=== PATIENT | female | born 1960 | race Caucasian/White ===

== ENCOUNTER 2016-06-19 08:06 | Emergency (ER) | payer BC, OTHER ==
[2016-06-19] MEDS ORDERED: Ketorolac INJ* 60 MG/2 ML VIAL IM ONE (08:38)
--- NOTE | 2016-06-19 08:52 | UC ---
Wil Parks Matthew, scribed for Uriah Black MD on 06/19/16 at 0836 . Dental HPI - HPI Summary HPI Summary: A 55 y/o female presents to the ED with right upper dental pain. The patient saw her dentist on 06/16 and was told she needed a root canal for a dental infection. She has a follow-up appointment scheduled with a specialist in approximately 2 weeks. At that time, the patient was also prescribed penicillin and diflunisal. Initially, her symptoms were improving; however since last night the pain has worsened moving into the right check. She is unable to eat from the pain and has associated upper right sided facial swelling. - History of Current Complaint Chief Complaint: UCDentalProblem Stated Complaint: DENTAL PAIN Time Seen by Provider: 06/19/16 08:19 Hx Obtained From: Patient ?: No Onset/Duration: Lasting Days, Still Present Severity: Moderate Pain Intensity: 9 Pain Scale Used: 0-10 Numeric Aggravating: Chewing - Allergies/Home Medications Allergies/Adverse Reactions: Allergies Allergy/AdvReac Type Severity Reaction Status Date / Time No Known Allergies Allergy Verified 01/15/16 10:15 Home Medications: Home Medications Diflunisal TAB* [Dolobid TAB*] 2 tab PO Q8HR PRN 06/19/16 [History Confirmed ] PMH/Surg Hx/FS Hx/Imm Hx Endocrine History Of: Reports: Thyroid Disease - HASHIMOTOS, Hypothyroidism Denies: Diabetes Cardiovascular History Of: Reports: Cardiac Disorders - blood clots in lungs, Congestive Heart Failure - CHRONIC DIASTOLIC HEART FAILURE Denies: Hypertension, Pacemaker/ICD Respiratory History Of: Reports: Pulmonary Embolism - POSSIBLE 2006 AND 2007, UNSURE AFTER TESTING Denies: COPD, Asthma GI/ History Of: Denies: Ulcer Psychological History Of: Reports: Depression - ON MEDS Cancer History Of: Denies: Breast Cancer - Surgical History Surgical History: Yes Surgery Procedure, Year, and Place: HYSTOSCOPY, MOLE REMOVED -MELONOMA, BLADDER SLING, CARDIAC CATH W/O STENTS. BACK SURGERY spinal fusion - Family History Known Family History: Positive: Diabetes Family History: No FHx of breast CA - Social History Alcohol Use: None Substance Use Type: None Smoking Status (MU): Former Smoker Type: Cigarettes Have You Smoked in the Last Year: No When Did the Patient Quit Smoking/Using Tobacco: 1997 Review of Systems Constitutional: Negative Skin: Negative Eyes: Negative ENT: Dental Pain, Other - right sided facial swelling Respiratory: Negative Cardiovascular: Negative Gastrointestinal: Negative Genitourinary: Negative Motor: Negative Neurovascular: Negative Musculoskeletal: Negative Neurological: Negative Psychological: Negative All Other Systems Reviewed And Are Negative: Yes Physical Exam Triage Information Reviewed: Yes Vital Signs: Initial Vital Signs Temp 97.4 F 06/19/16 08:13 Pulse 83 06/19/16 08:13 Resp 18 06/19/16 08:13 BP 137/84 06/19/16 08:13 Pulse Ox 99 06/19/16 08:13 Vital Signs Reviewed: Yes - Additional Comments VITAL SIGNS: Reviewed. GENERAL: Patient is a well developed and nourished female who is lying comfortable in the stretcher. Patient is not in any acute respiratory distress. HEAD AND FACE: Normocephalic; Positive upper right sided facial swelling EYES: PERRLA, EOMI x 2. EARS: Hearing grossly intact. MOUTH: Oropharynx within normal limits. The patient also has multiple cavities and fillings in teeth 2,3,4 NECK: Supple, trachea is midline, no adenopathy, no JVD, no carotid bruit. CHEST: Symmetric, no tenderness at palpation LUNGS: Clear to auscultation bilaterally. No wheezing or crackles. CVS: Regular rate and rhythm, S1 and S2 present, no murmurs or gallops appreciated. ABDOMEN: Soft, non-tender. Bowel sounds are normal. No abdominal abnormal pulsations. EXTREMITIES: FROM in all major joints, no edema, no cyanosis or clubbing. NEURO: Alert and oriented x 3. No acute neurological deficits. Speech is normal and follows commands. SKIN: Dry and warm Dental Complaint Course/Dx - Course Course Of Treatment: A 55 y/o female presents to the ED with right upper dental pain. The patient saw her dentist on 06/16 and was told she needed a root canal for a dental infection. She has a follow-up appointment scheduled with a specialist in approximately 2 weeks. At that time, the patient was also prescribed penicillin and diflunisal. Initially, her symptoms were improving; however since last night the pain has worsened moving into the right check. She is unable to eat from the pain and has associated upper right sided facial swelling. P/E: reveals a right facial swelling possible secondary to an early formation of a dental Abscess. She is scheduled to have a root canal in 2 weeks. She is taking penicillin however her symptoms are getting worse. I gave patient Toradol for pain. I also will change penicillin to Augmentin. I will prescribe a short course of Percocet for the pain. She is to take Diflunisal as indicated. She will stop taking Penicillin. She was highly recommended to follow up with her dentist today or tomorrow for further assessment and treatment. At this time she has no trismus, drooling, difficulty swallowing, therefore she will safe to discharge with an urgent f/u of her dentist. I discussed all the findings and test results with the patient. Patient was instructed to return to the emergency room immediately if any of the symptoms return or worsens. Plan of care was discussed with the patient and understands and agrees. All questions were answered at patient satisfaction. There were no further complaints or concerns. Lung exam before discharge: CTA B/L. Good air exchange. No wheezing or crackles heard. CVS: S1 and S2 present. No murmurs appreciated. Patient is alert and oriented x 3. Patient is hemodynamically stable. Patient will be discharged home with follow up college administrator in the next 2-3 days - Differential Dx/Diagnosis Differential Diagnosis/Dx: Dental Abscess, Dental Caries, Fractured Tooth, Gingivitis, Odontogenic Pain Provider Diagnoses: Dental pain and abscess Discharge - Discharge Plan Condition: Stable Disposition: HOME Prescriptions: Amoxicillin/Clavulanate TAB* [Augmentin TAB 875*] 875 mg PO BID #20 tab oxyCODONE/Acetamin 5/325 MG* [Percocet 5/325 TAB*] 1 tab PO Q6H PRN #12 tab MDD max 4 tabs / day PRN Reason: Pain Patient Education Materials: Oxycodone/Acetaminophen (By mouth), Amoxicillin ( By mouth), Dental Abscess (ED), Toothache (ED) Referrals: Jean Marie De La Fuente MD [Primary Care Provider] - Additional Instructions: Please follow-up with your dentist as soon as possible. The documentation as recorded by the Wil lockwood Matthew accurately reflects the service I personally performed and the decisions made by , Uriah Black MD.
[2016-06-19 09:11] VITALS: BP 127/88
== END 2016-06-19 09:10 | disposition home or self-care (01) ==
LOC: UCEAST 08:06
DX: K04.7 Periapical abscess without sinus (principal); K08.89 Other specified disorders of teeth and supporting structures; Z86.711 Personal history of pulmonary embolism; I50.32 Chronic diastolic (congestive) heart failure; F32.9 Major depressive disorder, single episode, unspecified; Z87.891 Personal history of nicotine dependence
CPT/HCPCS: 96372; 99212; G0463; J1885

== ENCOUNTER 2016-09-02 09:20 | Inpatient (IN) | payer BC ==
[2016-09-02] MEDS ORDERED: NS 0.9% 1000 ML* 1,000 ML IV ONE (10:52)
[2016-09-02] MEDS ORDERED: Ketorolac INJ* 30 MG/ML 1 ML VIAL IV ONE (10:52)
[2016-09-02] MEDS ORDERED: Ondansetron INJ* 2 MG/ML VIAL IV ONE ×2 (10:52→14:40)
--- NOTE | 2016-09-02 11:35 | ED ---
Abdominal Pain/Female - HPI Summary HPI Summary: 55 female presents with complaints of left lower abdominal pain that radiates into left flank. Began on Thursday08/30/16 and has worsened over the past few days. Patient had one episode of diarrhea on Thursday when symptoms began however she took immodium and has not had any since. She had a normal bowel movement today while in ED. She denies blood in stool and vomiting. Admits to some nausea due to the pain. States pain comes and goes and brings her to her knees when it is at its worst. 10/10 that goes down to a 5/10 inbetween episodes. States the pain is sharp and sometimes a dull ache. Denies fever/ chills. She denies any history of GI issues. Was told at colonoscopy that she does have some diverticulosis ~7 years ago. no other significant PMHx. Denies kidney stones, urinary symptoms and genitalia symptoms. Has not taken any medication for the pain. No recent antibiotic use and has not been out of the country. - History of Current Complaint Chief Complaint: EDFlankPain Stated Complaint: LT FLANK PAIN Time Seen by Provider: 09/02/16 09:56 Hx Obtained From: Patient ?: No Onset/Duration: Sudden Onset, Lasting Days - 4 Timing: Intermittent Episode Lasting - minutes Severity Initially: Moderate Severity Currently: Moderate Pain Intensity: 6 Pain Scale Used: 0-10 Numeric - however goes up to a 10/10 intermittently Location: Discrete At: LUQ, Discrete At: LLQ Radiates: Yes Radiates to: Flank - left, Other - umbilical Character: Sharp, Dull Aggravating Factor(s): Nothing Alleviating Factor(s): Nothing Associated Signs and Symptoms: Positive: Back Pain, Decreased Appetite, Nausea, Diarrhea. Negative: Diaphoresis, Fever, Blood in Stool Allergies/Adverse Reactions: Allergies Allergy/AdvReac Type Severity Reaction Status Date / Time No Known Allergies Allergy Verified 09/02/16 10:09 PMH/Surg Hx/FS Hx/Imm Hx Endocrine/Hematology History: Reports: Hx Thyroid Disease - HASHIMOTOS, Hx Anemia - INTERMITTANT- [place] FOR MANY YEARS Denies: Hx Diabetes Cardiovascular History: Reports: Hx Congestive Heart Failure - CHRONIC DIASTOLIC HEART FAILURE, Other Cardiovascular Problems/Disorders - CARDIOMYOPATHY Denies: Hx Hypertension, Hx Pacemaker/ICD Respiratory History: Reports: Hx Pulmonary Embolism - POSSIBLE 2006 AND 2007, UNSURE AFTER TESTING Denies: Hx Asthma, Hx Chronic Obstructive Pulmonary Disease (COPD) GI History: Reports: Hx Gastroesophageal Reflux Disease, Hx Hiatal Hernia Denies: Hx Ulcer Musculoskeletal History: Reports: Hx Back Problems - lumbar radiculopathy/ spinal stenosis Sensory History: Reports: Hx Contacts or Glasses Denies: Hx Hearing Aid Opthamlomology History: Reports: Hx Contacts or Glasses Neurological History: Reports: Other Neuro Impairments/Disorders - PAIN CLINIC PATIENT Psychiatric History: Reports: Hx Depression - ON MEDS Denies: Hx Panic Disorder - Cancer History Cancer Type, Location and Year: Melanoma leg Hx Chemotherapy: No Hx Radiation Therapy: No - Surgical History Surgery Procedure, Year, and Place: HYSTOSCOPY, MOLE REMOVED -MELONOMA, BLADDER SLING, CARDIAC CATH W/O STENTS. BACK SURGERY spinal fusion Hx Anesthesia Reactions: No - Immunization History Immunizations Up to Date: Yes Infectious Disease History: Yes Infectious Disease History: Denies: Hx Clostridium Difficile, Hx Hepatitis, Hx Human Immunodeficiency Virus (HIV), Hx of Known/Suspected MRSA, Hx Shingles, Hx Tuberculosis, Hx Known/ Suspected VRE, Hx Known/Suspected VRSA, History Other Infectious Disease, Traveled Outside the [place] in Last 30 Days - Family History Known Family History: Positive: Diabetes Family History: No FHx of breast CA - Social History Alcohol Use: Rare Substance Use Type: Reports: None Smoking Status (MU): Former Smoker Type: Cigarettes Have You Smoked in the Last Year: No Review of Systems Constitutional: Negative Cardiovascular: Negative Respiratory: Negative Positive: Abdominal Pain, Diarrhea, Nausea Genitourinary: Negative Musculoskeletal: Negative Neurological: Negative All Other Systems Reviewed And Are Negative: Yes Physical Exam Triage Information Reviewed: Yes Vital Signs On Initial Exam: Initial Vitals Temp Pulse Resp BP Pulse Ox 97.2 F 84 16 126/96 100 09/02/16 09:25 09/02/16 09:25 09/02/16 09:25 09/02/16 09:25 09/02/16 09:25 afebrile Vital Signs Reviewed: Yes Appearance: Positive: Well-Appearing, Well-Nourished, Pain Distress - mild pain distress holding side and wincing Skin: Positive: Warm, Skin Color Reflects Adequate Perfusion, Dry Head/Face: Positive: Normal Head/Face Inspection Eyes: Positive: Normal, Conjunctiva Clear ENT: Positive: Normal ENT inspection, Hearing grossly normal, TMs normal Neck: Positive: Supple, Nontender, No Lymphadenopathy Respiratory/Lung Sounds: Positive: Clear to Auscultation, Breath Sounds Present. Negative: Rales, Rhonchi, Stridor, Wheezes Cardiovascular: Positive: Normal, RRR, Pulses are Symmetrical in both Upper and Lower Extremities. Negative: Murmur, Rub Abdomen Description: Positive: No Organomegaly, Soft, CVA Tenderness (L), Guarding, Other: - tenderness on palpation of left side abdomen and some in mid abdomen. mostly painful at LLQ with palpation.. Negative: Bruit, CVA Tenderness (R), Distended, McBurney's Point Tenderness, Peritoneal Signs, Pulsatile Mass Bowel Sounds: Positive: Present, Hypoactive Pelvic Exam: Positive: external exam normal - per patient Musculoskeletal: Positive: Normal, Strength/ROM Intact Neurological: Positive: Normal, Sensory/Motor Intact, Alert, Oriented to Person Place, Time Psychiatric: Positive: Affect/Mood Appropriate AVPU Assessment: Alert - Forbes Coma Scale Coma Scale Total: 15 Diagnostics - Vital Signs Vital Signs Temp Pulse Resp BP Pulse Ox 09/02/16 10:15 98.0 F 70 16 120/80 99 09/02/16 10:08 120/80 09/02/16 09:25 97.2 F 84 16 126/96 100 - Laboratory Result Diagrams: 09/02/16 11:29 09/02/16 11:29 Lab Statement: Any lab studies that have been ordered have been reviewed, and results considered in the medical decision making process. - CT abd/pelvis CT Interpretation: Positive (See Comments) - DIFFUSE WALL THICKENING OF THE DESCENDING COLON AND SIGMOID COLON WITH PERICOLONIC INFILTRATION OF FAT ESPECIALLY AT THE JUNCTION BETWEEN THE DESCENDING COLON AND SIGMOID COLON. THIS MAY REPRESENT DIVERTICULITIS OR COLITIS. NO EVIDENCE OF ABSCESS IS NOTED. CT Interpretation Completed By: Radiologist Re-Evaluation - Re-Evaluation First Eval Re-Evaluation Time: 11:35 Change: Improved - patients pain had improved after toradol Second Eval Re-Evaluation Time: 13:05 Change: Worse - patient's pain had returned, will be given morphine Third Eval Re-Evaluation Time: 14:00 Change: Improved - pain had slightly improved however was not as helpful as toradol, patient not due for another toradol dose at this time. discussed admission after speaking with GI. patient is in agreement. given 2mg more of morphine Abdominal Pain Fem Course/Dx - Course Course Of Treatment: given toradol for pain and zofran for nausea. fluids. Labs obtained and unremarkable. CT with contrast ordered and positive for colitis/ diverticulitis. Due to no sign of infection in lab work and vitals, possible inflammatory colitis. discussed with Dr Hernandez at 3:15pm who states patient should be admitted for sigmoidoscopy tomorrow 09/03/16. Spoke with Dr Triana at 3:23pm who accepted admission. Patient was educated on possible etiologies, clear liquid diet and agreed with plan. - Diagnoses Differential Diagnosis: Positive: Diverticulitis, Irritable Bowel Syndrome, Peptic Ulcer Disease, Other - UC, Crohn's Provider Diagnoses: Colitis - Provider Notifications Discussed Care Of Patient With: Dr Kong Cline Time Discussed With Above Provider: 15:20 Instructed by Provider To: Admit As Inpatient Discharge - Discharge Plan Condition: Stable Disposition: ADMITTED TO [facility]
[2016-09-02 11:47] LABS: Hematocrit 42 % (35-47); Hemoglobin 14.1 g/dl (12.0-16.0); Mean Corpuscular HGB Conc 34 g/dl (31-36); Mean Corpuscular Hemoglobin 30 pg (27-31); Mean Corpuscular Volume 89 fL (80-97); Mean Platelet Volume 9 um3 (7.4-10.4); Red Blood Count 4.71 10^6/ul (4.0-5.4); Red Cell Distribution Width 13 % (10.5-15); White Blood Count 6.3 10^3/ul (3.5-10.8)
[2016-09-02 12:00] LABS: ALT 25 U/L (7-52); AST 17 U/L (13-39); Albumin 4.4 g/dL (3.2-5.2); Alkaline Phosphatase 85 U/L (34-104); Anion Gap 2 mmol/L (2-11); BUN/Creatinine Ratio 14.1 (8-20); Blood Urea Nitrogen 11 mg/dL (6-24); C Reactive Protein 9.83 mg/L (< 5.00); CO2 Carbon Dioxide 24 mmol/L (22-32); Calcium 9.5 mg/dL (8.6-10.3); Chloride 109 mmol/L (101-111); EGFR African American 98.3 (>60); EGFR Non-African American 76.4 (>60); Globulin 2.3 g/dL (2-4); Glucose 104 mg/dL (70-100); Lipase < 10 U/L (11.0-82.0); Potassium 3.3 mmol/L (3.5-5.0); Sodium 135 mmol/L (133-145); Total Protein 6.7 g/dL (6.4-8.9)
[2016-09-02] MEDS ORDERED: Iohexol 300* (CONTRAST) 10 ML SDV IV ONE (12:50)
--- NOTE | 2016-09-02 13:21 | RAD ---
Indication: Left lower quadrant pain. Contrast: 139 mL of Omnipaque 300 was given according to hospital protocol. CT of the abdomen and pelvis was performed after oral and IV contrast administration. Coronal and sagittal reconstructed images were obtained. The lung bases demonstrates left basilar atelectasis. No pleural fluid is identified. The heart demonstrates no pericardial effusion. The liver is normal in size. No focal lesions or intrahepatic duct dilatation is noted. Gallbladder demonstrates no calcified gallstones. No pericholecystic fluid or wall thickening is identified. The common duct is not dilated. The pancreas demonstrates no mass or pancreatic duct dilatation. The spleen is normal in size. No adrenal lesions are noted. The kidneys demonstrate symmetric nephrograms without evidence of focal lesions. The colon is filled with contrast. There is circumferential wall thickening of the descending colon. There is focal wall thickening with pericolonic infiltration of fat at the junction between the sigmoid colon and descending colon. Underlying diverticulosis is noted and this may represent diverticulitis. No definite abscess is noted. Alternatively the possibility of colitis involving the descending colon and sigmoid colon should BE considered. Trace amount of free fluid is noted in the pelvis. The urinary bladder is otherwise unremarkable. Postoperative changes of the lumbar spine is noted. IMPRESSION: DIFFUSE WALL THICKENING OF THE DESCENDING COLON AND SIGMOID COLON WITH PERICOLONIC INFILTRATION OF FAT ESPECIALLY AT THE JUNCTION BETWEEN THE DESCENDING COLON AND SIGMOID COLON. THIS MAY REPRESENT DIVERTICULITIS OR COLITIS. NO EVIDENCE OF ABSCESS IS NOTED.
[2016-09-02] MEDS ORDERED: Morphine INJ* 2 MG/ML 1 ML SYRINGE IV ONE ×2 (13:56→14:38)
[2016-09-02 14:13] LABS: Urine Bacteria Absent (Absent); Urine Bilirubin Negative (Negative); Urine Glucose Negative (Negative); Urine Nitrite Negative (Negative)
[2016-09-02] MEDS ORDERED: Acetaminophen TAB* 325 MG PO PRN (16:51)
[2016-09-02] MEDS ORDERED: NS 0.9% 1000 ML* 1,000 ML IV SCH (17:00)
[2016-09-02] MEDS ORDERED: Potassium Chlor TAB* 20 MEQ TAB.ER PO ONE (17:00)
[2016-09-02] MEDS ORDERED: Ketorolac INJ* 30 MG/ML 1 ML VIAL IV PUSH ONE (17:06)
[2016-09-02] MEDS ORDERED: PEG 3000 GI LAVAGE* 1 GALLON PO ONE (17:07)
[2016-09-02] MEDS: Ciprofloxacin 400MG IVPREMIX(* 400 MG/200 ML BAG IVPB SCH (18:25)
[2016-09-02] MEDS: Enoxaparin(*) 40 MG/0.4 ML SYR SUBCUT SCH (18:33)
[2016-09-02] MEDS ORDERED: Cetirizine* 10 MG TAB PO PRN (18:34)
--- NOTE | 2016-09-02 19:48 | CONS ---
GASTROENTEROLOGY CONSULTATION DATE: 09/02/16 - ROOM #408 CONSULTING PHYSICIAN: Dr. Jean Marie De La Fuente, Dr. Edwardo Park REASON FOR CONSULTATION: Thickened left colon in a woman with a possible prior history of pulmonary embolism. HISTORY: This 55-year-old woman states she was feeling well in general last week including Thursday. On August 30, she developed cramps and diarrhea in the morning. There was no blood in it. There was no vomiting or fever. She got some Imodium that she happens to have on-hand because of propensity to diarrhea (she usually set off by emotional stress) and that seems to settle her down somewhat. She continues to have more cramps and diarrhea to certain extent that day and certainly the next day also. On September 01, she felt debatably a little better and actually her daughter took her out to an ice cream shop where she had a medium swirl ice cream cone and strawberry milkshake. These resulted in more cramps and diarrhea. Today, she thought she might try to go to work, but found it was too painful. She did have a small soft bowel movement today. At no point did she develop vomiting or fever. There has been no skin rash. She had a colonoscopy 6 years ago that was said to be normal. The records say there were a few diverticula. In the ensuing years, there was never any signs or symptoms that suggest that she might need reevaluation, though again she is prone to diarrhea. PAST MEDICAL HISTORY: 1. Mild diastolic CHF - followed by Dr. Crowell with annual echos. 2. History of melanoma. 3. Morbid obesity. 4. History of chronic low back pain. 5. Hypothyroidism - Melania's. 6. History of GERD - nonerosive, on chronic Nexium. 7. Anxiety - on bupropion. 8. History of possible pulmonary embolism - she presented here in 2007 and was told based on imaging she had a pulmonary embolism. She was treated with warfarin for a year and then says the test was done to access for pulmonary embolism persistence or recurrence since she was told it was positive again. At that point, Dr. De La Fuente referred her to sales assistants and salespersons in [place]. To the patient's reconciliation, she stayed on warfarin an additional month and then she was taken off it and at that time had a D-dimer test, which she thinks was normal. Hypercoag studies here such as factor V Leiden and prothrombin mutation were negative. At that point, she believes she was told that she never had a pulmonary embolism to begin with, although today it was somewhat of a new concept for her to think that possibly what was meant that she did not have definable hypercoagulable state. Today she was accompanied by her daughter who is a nursing home director. SOCIAL HISTORY: She is , works for [employer]. Her daughter, Dunai, is a nursing home director. She is a nonsmoker. REVIEW OF SYSTEMS: No history of seizure, CVA, TIA, syncope, hepatitis, jaundice, HI, renal stone, intraabdominal surgery, or colon polyps. LABS: White count 6. IMAGING: Thickening of the descending and sigmoid colon with some infiltration of the fat. It was unclear as to whether just diverticulitis or colitis. IMPRESSION: This 55-year-old woman comes in with left side abdominal pain. It began with cramps and diarrhea and now is settled into more of pain only pattern. Curiously she has not had any fever, does not pass any blood. The history of pulmonary embolism that she carries would suggest possibility of a thrombophilic state raising the possibility of ischemic colitis and documenting that would have definite implications. Records of her hematology workup are being requested. Possibility that this just represents diverticulitis is certainly still present though or such widespread area of inflammation on the CT, one might expect a fever and elevated white count. Diverticulitis characteristically would start with the feeling of obstipation or constipation and not cramps and diarrhea at the same time. The possibility of a new or missed ischemic event, it is important enough to gingerly give her Colyte in limited doses over the next 24 hours and see if we can get visualization of the area of CT abnormality. [id number]/[facility] #: [id number] [facility]
[2016-09-02] MEDS: metroNIDAZOLE IV 500 MG/100ML* 500 MG/100 ML BAG IVPB SCH (20:09)
[2016-09-02] MEDS: Morphine INJ* 2 MG/ML 1 ML SYRINGE IV PRN (21:12)
[2016-09-02] MEDS: Omeprazole CAP* 20 MG PO SCH (21:17)
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
[2016-09-03] MEDS: metroNIDAZOLE IV 500 MG/100ML* 500 MG/100 ML BAG IVPB SCH ×3 (02:11→19:53)
[2016-09-03 05:27] LABS: Hematocrit 38 % (35-47); Hemoglobin 12.7 g/dl (12.0-16.0); Mean Corpuscular HGB Conc 34 g/dl (31-36); Mean Corpuscular Hemoglobin 30 pg (27-31); Mean Corpuscular Volume 90 fL (80-97); Mean Platelet Volume 9 um3 (7.4-10.4); Red Blood Count 4.19 10^6/ul (4.0-5.4); Red Cell Distribution Width 14 % (10.5-15); White Blood Count 4.7 10^3/ul (3.5-10.8)
[2016-09-03] MEDS: Ciprofloxacin 400MG IVPREMIX(* 400 MG/200 ML BAG IVPB SCH ×2 (05:38→17:48)
[2016-09-03] MEDS: Morphine INJ* 2 MG/ML 1 ML SYRINGE IV PRN ×4 (05:41→20:33)
[2016-09-03 05:43] LABS: C Reactive Protein 6.36 mg/L (< 5.00); Calcium 8.6 mg/dL (8.6-10.3); EGFR African American 95.4 (>60); EGFR Non-African American 74.2 (>60); Potassium 3.6 mmol/L (3.5-5.0)
[2016-09-03] MEDS: Ondansetron INJ* 2 MG/ML VIAL IV PRN ×3 (06:49→20:33)
[2016-09-03] MEDS: BuPROPion XL* 150 MG TAB.XL PO SCH (08:52)
[2016-09-03] MEDS: Levothyroxine TAB* 100 MCG TAB PO SCH (08:52)
[2016-09-03] MEDS: Metoprolol Succinate XL TAB* 25 MG PO SCH (08:52)
[2016-09-03] MEDS: Levothyroxine TAB* 75 MCG TAB PO SCH (08:52)
[2016-09-03] MEDS: Omeprazole CAP* 20 MG PO SCH ×2 (08:55→20:36)
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
[2016-09-03] MEDS ORDERED: Meperidine SYRINGE* 50 MG/ML ONE (15:21)
[2016-09-03] MEDS ORDERED: Midazolam* 1 MG/ML 10 ML VIAL (10 MG) ONE (15:21)
[2016-09-03] MEDS: Enoxaparin(*) 40 MG/0.4 ML SYR SUBCUT SCH (17:48)
[2016-09-03] MEDS ORDERED: PEG 3000 GI LAVAGE* 1 GALLON PO ONE (18:00)
[2016-09-04] MEDS: metroNIDAZOLE IV 500 MG/100ML* 500 MG/100 ML BAG IVPB SCH ×2 (01:55→09:59)
[2016-09-04] MEDS: Ciprofloxacin 400MG IVPREMIX(* 400 MG/200 ML BAG IVPB SCH (04:46)
[2016-09-04] MEDS: Levothyroxine TAB* 75 MCG TAB PO SCH (05:55)
[2016-09-04] MEDS: Levothyroxine TAB* 100 MCG TAB PO SCH (05:55)
[2016-09-04 08:14] VITALS: BP 138/86
[2016-09-04] MEDS: BuPROPion XL* 150 MG TAB.XL PO SCH (09:52)
[2016-09-04] MEDS: Omeprazole CAP* 20 MG PO SCH (09:52)
[2016-09-04] MEDS: Metoprolol Succinate XL TAB* 25 MG PO SCH (09:53)
--- NOTE | 2016-09-04 10:35 | PRO ---
DATE: 09/03/16 - ROOM #408 REFERRING PHYSICIANS: Ana Ornelas DO; Jean Marie De La Fuente MD * PROCEDURE: Flexible sigmoidoscopy to midsigmoid. INDICATION: This 55-year-old woman came to the emergency room with the left flank pain, which had started as a diarrheal crampy illness several days before. In the ER, her white count was normal and she was afebrile, though the CT scan showed stranding and a segment of thickened colon. With the history of possible pulmonary embolism in the past and a hypercoagulable workup, with this atypical presentation, a sigmoidoscopy to rule out ischemic colitis was desired. Over the last 24 hours, she has been treated with Cipro and Flagyl and has remained afebrile with no emesis or rectal bleeding. She did take five cups of Go-Lyte and has had a number of loose stools. She continues to complain of severe left lower quadrant pain and has been getting shots of morphine. ENDOSCOPIST: Dr. Hernandez. MEDICATIONS: Midazolam 6, meperidine 50. FINDINGS: She is a substantially overweight, middle-aged woman, in no distress. At this time, laying in bed. Bowel sounds are normal. The abdomen is soft. There is a focal area of left lower quadrant tenderness. It is not widespread. Rectal is normal. The rectal mucosa appears normal. There is liquid, brown stool present. After lavage, the rectal mucosa appears normal as does the rectosigmoid and distal sigmoid. In the midsigmoid, there was an edematous fold seen. It was not erythematous or inflamed. Going past this area within 4 to 5 cm, the patient began to complain of significant distress. There has been formed stool seen. No area of inflammation or pus are seen. It was elected to terminate the exam at this time. IMPRESSION: 1. Normal flexible sigmoidoscopy - the absence of any ischemic changes or bloody secretions felt to reduce the likelihood of an ischemic event and strongly favor diverticulitis as the underlying diagnosis. 2. Suspected irritable bowel syndrome - probably playing a role in her picture. She has Imodium at home and has a pattern of taking that. [id number]/[facility] #: [id number] MTDD
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
== END 2016-09-04 14:35 | disposition home or self-care (01) | DRG 244 ==
LOC: ED 09:20 → MED 16:31
PROVIDERS: ADMIT Hospitalist; ATTEND Hospitalist
PROC: 0DJD8ZZ Inspection of Lower Intestinal Tract, Via Natural or Artificial Opening Endoscopic (ICD-10-PCS; principal; 2016-09-03)
DX: K57.32 Diverticulitis of large intestine without perforation or abscess without bleeding (principal); I42.9 Cardiomyopathy, unspecified; I50.32 Chronic diastolic (congestive) heart failure; K21.9 Gastro-esophageal reflux disease without esophagitis; M54.16 Radiculopathy, lumbar region; F32.9 Major depressive disorder, single episode, unspecified; J30.2 Other seasonal allergic rhinitis; K44.9 Diaphragmatic hernia without obstruction or gangrene; E87.6 Hypokalemia; G89.29 Other chronic pain; E06.3 Autoimmune thyroiditis; M48.00 Spinal stenosis, site unspecified; R40.2412 Glasgow coma scale score 13-15, at arrival to emergency department; E03.8 Other specified hypothyroidism; M54.5 Low back pain; F41.9 Anxiety disorder, unspecified; E66.3 Overweight; K58.9 Irritable bowel syndrome, unspecified; M53.3 Sacrococcygeal disorders, not elsewhere classified; R13.10 Dysphagia, unspecified; R05 Cough; Z86.711 Personal history of pulmonary embolism; Z85.820 Personal history of malignant melanoma of skin; Z98.1 Arthrodesis status; Z83.3 Family history of diabetes mellitus; Z80.51 Family history of malignant neoplasm of kidney; Z68.31 Body mass index [BMI] 31.0-31.9, adult; Z87.891 Personal history of nicotine dependence; Z72.89 Other problems related to lifestyle
CPT/HCPCS: 36415; 74177; 80048; 80053; 81003; 81015; 83605; 83690; 85025; 85379; 86140; 87045; 87046; 87077; 87086; 87899; A9270-GY; J0744; J1650; J1885; J2250; J2270; J2405; Q9967

== ENCOUNTER 2016-09-12 17:51 | Emergency (ER) | payer SELFPAY ==
[2016-09-12 17:56] VITALS: BP 141/82
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
--- NOTE | 2016-09-12 18:59 | RAD ---
INDICATION: Right shoulder pain. COMPARISON: None TECHNIQUE: Routine frontal, Y and axial views were obtained. FINDINGS: The bony structures, joint spaces, and soft tissues are normal for age. IMPRESSION: NEGATIVE EXAMINATION.
[2016-09-12] MEDS ORDERED: Ketorolac INJ* 60 MG/2 ML VIAL IM ONE (19:16)
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
== END 2016-09-12 19:26 | disposition home or self-care (01) ==
LOC: UCEAST 17:51
DX: S16.1XXA Strain of muscle, fascia and tendon at neck level, initial encounter (principal); S43.401A Unspecified sprain of right shoulder joint, initial encounter; V48.5XXA Car driver injured in noncollision transport accident in traffic accident, initial encounter; Z87.891 Personal history of nicotine dependence
CPT/HCPCS: 72050; 96372; 99213; G0463; J1885

== ENCOUNTER 2017-04-27 12:14 | Emergency (ER) | payer BC ==
[2017-04-27 14:19] LABS: ABS Basophils 0.1 10^3/ul (0-0.2); ABS Eosinophils 0.1 10^3/ul (0-0.6); ABS Lymphocytes 1.4 10^3/ul (1.0-4.8); ABS Monocytes 0.5 10^3/ul (0-0.8); ABS Neutrophils 8.4 10^3/ul (1.5-7.7); ABS Nucleated RBC 0 10^3/ul; Eosinophil % 0.5 % (0-6); Hematocrit 45 % (35-47); Hemoglobin 15.2 g/dl (12.0-16.0); Lymphocyte % 13.3 % (25-47); Mean Corpuscular HGB Conc 34 g/dl (31-36); Mean Corpuscular Hemoglobin 31 pg (27-31); Mean Corpuscular Volume 91 fL (80-97); Mean Platelet Volume 8 um3 (7.4-10.4); Nucleated Red Blood Cells % 0.1; Platelet Count 246 10^3/ul (150-450); Red Blood Count 4.97 10^6/ul (4.0-5.4); Red Cell Distribution Width 13 % (10.5-15); White Blood Count 10.5 10^3/ul (3.5-10.8)
[2017-04-27] MEDS ORDERED: Morphine INJ* 4 MG/ML 1 ML CARPUJECT IV ONE ×2 (14:22→17:30)
[2017-04-27] MEDS ORDERED: Ondansetron INJ* 2 MG/ML VIAL IV ONE ×2 (14:22→17:54)
[2017-04-27] MEDS ORDERED: NS 0.9% 1000 ML* 1,000 ML IV ONE (14:23)
[2017-04-27 14:34] LABS: INR 0.95 (0.77-1.02)
[2017-04-27 14:36] LABS: EGFR Non-African American 70.9 (>60)
[2017-04-27 14:46] LABS: Urine Appearance Clear; Urine Blood 1+ (Negative); Urine Color Yellow; Urine Ketones Negative (Negative); Urine Protein Negative (Negative); Urine Specific Gravity 1.028 (1.010-1.030); Urine Urobilinogen Negative (Negative)
--- NOTE | 2017-04-27 14:46 | ED ---
Abdominal Pain/Female - HPI Summary HPI Summary: 56-year-old presents with abdominal pain since last night. She feels like when she had Diverticulitis. She's been having diarrhea since last night. He states He Has Been Seeing Some Blood in Her Stool. She States the Pain Feels like a Cramp-like. She Denies Any dysuria. She admits to nausea but Denies Any Vomiting. She States That with Blood Streaks in Her Stool. She states she had a normal bowel movement today. She denies any melena.. She Denies Any Fever. She Denies Anyone Else Being Sick. She was seen here for these symptoms she was scoped and it was normal with a sigmoid scope. She has been using ibuprofen for pain. - History of Current Complaint Chief Complaint: EDAbdPain Stated Complaint: DIAHRREA Time Seen by Provider: 04/27/17 13:45 Pain Intensity: 9 Allergies/Adverse Reactions: Allergies Allergy/AdvReac Type Severity Reaction Status Date / Time No Known Allergies Allergy Verified 09/12/16 17:56 PMH/Surg Hx/FS Hx/Imm Hx Endocrine/Hematology History: Reports: Hx Thyroid Disease - HASHIMOTOS, Hx Anemia - INTERMITTANT- [place] FOR MANY YEARS Denies: Hx Diabetes Cardiovascular History: Reports: Hx Congestive Heart Failure - CHRONIC DIASTOLIC HEART FAILURE, Other Cardiovascular Problems/Disorders - CARDIOMYOPATHY Denies: Hx Hypertension, Hx Pacemaker/ICD Respiratory History: Reports: Hx Pulmonary Embolism - POSSIBLE 2006 AND 2007, UNSURE AFTER TESTING Denies: Hx Asthma, Hx Chronic Obstructive Pulmonary Disease (COPD) GI History: Reports: Hx Gastroesophageal Reflux Disease, Hx Hiatal Hernia Denies: Hx Ulcer Musculoskeletal History: Reports: Hx Back Problems - lumbar radiculopathy/ spinal stenosis Sensory History: Reports: Hx Contacts or Glasses Denies: Hx Hearing Aid Opthamlomology History: Reports: Hx Contacts or Glasses Neurological History: Reports: Other Neuro Impairments/Disorders - PAIN CLINIC PATIENT Psychiatric History: Reports: Hx Depression - ON MEDS Denies: Hx Panic Disorder - Cancer History Cancer Type, Location and Year: Melanoma leg Hx Chemotherapy: No Hx Radiation Therapy: No - Surgical History Surgery Procedure, Year, and Place: HYSTOSCOPY, MOLE REMOVED -MELONOMA, BLADDER SLING, CARDIAC CATH W/O STENTS. BACK SURGERY spinal fusion Hx Anesthesia Reactions: No Infectious Disease History: No Infectious Disease History: Denies: Hx Clostridium Difficile, Hx Hepatitis, Hx Human Immunodeficiency Virus (HIV), Hx of Known/Suspected MRSA, Hx Shingles, Hx Tuberculosis, Hx Known/ Suspected VRE, Hx Known/Suspected VRSA, History Other Infectious Disease, Traveled Outside the [place] in Last 30 Days - Family History Known Family History: Positive: Diabetes Family History: No FHx of breast CA - Social History Alcohol Use: None Substance Use Type: Reports: None Smoking Status (MU): Former Smoker Type: Cigarettes Have You Smoked in the Last Year: No Review of Systems Negative: Fever Negative: Chest Pain Negative: Shortness Of Breath Positive: Abdominal Pain, Diarrhea, Nausea. Negative: Vomiting All Other Systems Reviewed And Are Negative: Yes Physical Exam Triage Information Reviewed: Yes Vital Signs On Initial Exam: Initial Vitals Temp Pulse Resp BP Pulse Ox 99.2 F 99 18 133/88 100 04/27/17 12:28 04/27/17 12:28 04/27/17 12:28 04/27/17 12:28 04/27/17 12:28 Vital Signs Reviewed: Yes Appearance: Positive: Well-Appearing Skin: Positive: Warm, Dry Head/Face: Positive: Normal Head/Face Inspection Eyes: Positive: Normal, EOMI, BRYCE, Conjunctiva Clear ENT: Positive: Normal ENT inspection, Pharynx normal, TMs normal Respiratory/Lung Sounds: Positive: Clear to Auscultation, Breath Sounds Present Cardiovascular: Positive: Normal, RRR Abdomen Description: Positive: Soft, Other: - tenderness in LLQ, no rebound Bowel Sounds: Positive: Present Musculoskeletal: Positive: Normal Neurological: Positive: Normal Psychiatric: Positive: Normal Diagnostics - Vital Signs Vital Signs Temp Pulse Resp BP Pulse Ox 04/27/17 14:40 16 04/27/17 14:10 88 97 04/27/17 12:28 99.2 F 99 18 133/88 100 - Laboratory Lab Results: Lab Results 04/27/17 04/27/17 04/27/17 Range/Units 14:04 14:04 14:04 WBC 10.5 (3.5-10.8) 10^3/ul RBC 4.97 (4.0-5.4) 10^6/ul Hgb 15.2 (12.0-16.0) g/dl Hct 45 (35-47) % MCV 91 (80-97) fL MCH 31 (27-31) pg MCHC 34 (31-36) g/dl RDW 13 (10.5-15) % Plt Count 246 (150-450) 10^3/ul MPV 8 (7.4-10.4) um3 Neut % (Auto) 80.7 (38-83) % Lymph % (Auto) 13.3 L (25-47) % [place]wood % (Auto) 4.7 (1-9) % Eos % (Auto) 0.5 (0-6) % Baso % (Auto) 0.8 (0-2) % Absolute Neuts (auto) 8.4 H (1.5-7.7) 10^3/ul Absolute Lymphs (auto) 1.4 (1.0-4.8) 10^3/ul Absolute Monos (auto) 0.5 (0-0.8) 10^3/ul Absolute Eos (auto) 0.1 (0-0.6) 10^3/ul Absolute Basos (auto) 0.1 (0-0.2) 10^3/ul Absolute Nucleated RBC 0 10^3/ul Nucleated RBC % 0.1 INR (Anticoag Therapy) 0.95 (0.77-1.02) APTT 32.0 (26.0-36.3) seconds Sodium 141 (133-145) mmol/L Potassium 3.7 (3.5-5.0) mmol/L Chloride 108 (101-111) mmol/L Carbon Dioxide 27 (22-32) mmol/L Anion Gap 6 (2-11) mmol/L BUN 15 (6-24) mg/dL Creatinine 0.83 (0.51-0.95) mg/dL Est GFR ( Amer) 91.1 (>60) Est GFR (Non-Af Amer) 70.9 (>60) BUN/Creatinine Ratio 18.1 (8-20) Glucose 106 H (70-100) mg/dL Calcium 9.7 (8.6-10.3) mg/dL Total Bilirubin 0.40 (0.2-1.0) mg/dL AST 14 (13-39) U/L ALT 19 (7-52) U/L Alkaline Phosphatase 97 (34-104) U/L C-React Prot High Sens 3.74 mg/L Total Protein 6.8 (6.4-8.9) g/dL Albumin 4.4 (3.2-5.2) g/dL Globulin 2.4 (2-4) g/dL Albumin/Globulin Ratio 1.8 (1-3) Lipase 11 (11.0-82.0) U/L Result Diagrams: 04/27/17 14:04 04/27/17 14:04 Lab Statement: Any lab studies that have been ordered have been reviewed, and results considered in the medical decision making process. - CT abd CT Interpretation: Positive (See Comments) - IMPRESSION: 1. MUCOSAL THICKENING OF THE TRANSVERSE COLON EXTENDING TO THE SPLENIC FLEXURE SUGGESTIVE OF COLITIS. 2. DIVERTICULOSIS. 3. HEPATOMEGALY WITH FATTY INFILTRATION OF LIVER CT Interpretation Completed By: Radiologist Abdominal Pain Fem Course/Dx - Course Course Of Treatment: 56-year-old presents with abdominal pain since last night. She feels like when she had Diverticulitis. She's been having diarrhea since last night. He states He Has Been Seeing Some Blood in Her Stool. She States the Pain Feels like a Cramp-like. She Denies Any dysuria. She admits to nausea but Denies Any Vomiting. She States That with Blood Streaks in Her Stool. She states she had a normal bowel movement today. She denies any melena.. She Denies Any Fever. She Denies Anyone Else Being Sick. She was seen here for these symptoms she was scoped and it was normal with a sigmoid scope. She has been using ibuprofen for pain. On exam has tenderness in left lower quadrant. No rebound tenderness. Labs within normal limits. CT shows colitis. Will treat with Cipro and flagyl. Due to lab work being within normal limits will discharge with Cipro and Flagyl. Patient understands and agrees with plan. - Diagnoses Differential Diagnosis: Positive: Constipation, Urinary Tract Infection, Other - colitis Provider Diagnoses: Colitis, Abdominal pain Discharge - Discharge Plan Condition: Good Disposition: HOME Prescriptions: Ciprofloxacin TAB* [Cipro 500 MG TAB*] 500 mg PO BID #19 tab metroNIDAZOLE [Flagyl 500 MG TAB] 500 mg PO BID #19 tab Ondansetron TAB* [Zofran 4 MG Tab*] 4 mg PO Q6H PRN #12 tab PRN Reason: Nausea Patient Education Materials: Colitis (ED) Referrals: Jean Marie De La Fuente MD [Primary Care Provider] - Additional Instructions: Take ciprofloxacin twice a day for 10 days, first dose given in ED Take Flagyl every twice a day 10 days, first dose given in ED Take Zofran every 6 hours for nausea Drink small amounts of fluid as tolerated When able to eat follow BRAT diet: Bananas, rice, applesauce, toast follow up with primary within 7 days Return to ED if develop any new or worsening symptoms
[2017-04-27] MEDS ORDERED: Iohexol 300* (CONTRAST) 10 ML SDV IV ONE (14:54)
--- NOTE | 2017-04-27 17:07 | RAD ---
CLINICAL HISTORY: The COMPARISON: September 02, 2016 TECHNIQUE: Multiple contiguous axial CT scans were obtained of the abdomen and pelvis after the administration of intravenous contrast. Coronal and sagittal multiplanar reformations are submitted for review. Oral contrast was administered. Delayed images were obtained through the abdomen and pelvis. FINDINGS: LUNG BASES: The lung bases are clear. LIVER: The liver is diffusely low in attenuation compared to the spleen. Liver measures 22 cm in long axis. There are no focal hepatic parenchymal masses. BILE DUCTS: There is no intrahepatic or extrahepatic biliary dilatation. GALLBLADDER: The gallbladder is normal, without pericholecystic inflammatory change. PANCREAS: The pancreas is normal, without mass or ductal dilatation. SPLEEN: Normal in size and appearance. UPPER GI TRACT: Evaluation of the gastrointestinal tract is limited by incomplete gastric distention. The upper GI tract is unremarkable. SMALL BOWEL AND MESENTERY: The small bowel is normal in contour, course, and caliber. There is no obstruction or dilatation. COLON: There is mucosal thickening of the transverse colon extending to the splenic flexure. There are scattered diverticula of the distal colon. There is a tubular, vermiform, hollow viscus that is blind ending, and originates from the cecum, consistent with a normal appendix. There is no periappendiceal inflammatory change. ADRENALS: Normal bilaterally. KIDNEYS: The kidneys are normal in shape, size, contour, and axis. There is no hydronephrosis or nephrolithiasis. BLADDER: The bladder is smooth in contour. PELVIC ORGANS: The uterus and adnexa are grossly normal for technique. AORTA: The aorta is normal. IVC: Unremarkable LYMPH NODES: There is no lymphadenopathy by size criteria. ABDOMINAL WALL: There is no evidence for abdominal wall hernia. BONES AND SOFT TISSUES: The patient is status post lumpectomy and spinal fusion at L4-L5. OTHER: None IMPRESSION: 1. MUCOSAL THICKENING OF THE TRANSVERSE COLON EXTENDING TO THE SPLENIC FLEXURE SUGGESTIVE OF COLITIS. 2. DIVERTICULOSIS. 3. HEPATOMEGALY WITH FATTY INFILTRATION OF LIVER
[2017-04-27] MEDS ORDERED: metroNIDAZOLE TAB* 250 MG PO ONE (17:30)
[2017-04-27] MEDS ORDERED: Ciprofloxacin TAB* 500 MG PO ONE (17:30)
[2017-04-27] MEDS ORDERED: Ondansetron INJ* 2 MG/ML VIAL ONE (17:54)
[2017-04-27 18:45] VITALS: BP 137/80
== END 2017-04-27 18:43 | disposition home or self-care (01) ==
LOC: ED 12:14
DX: K52.9 Noninfective gastroenteritis and colitis, unspecified (principal); R10.9 Unspecified abdominal pain; F32.9 Major depressive disorder, single episode, unspecified; E06.3 Autoimmune thyroiditis; I50.32 Chronic diastolic (congestive) heart failure; I42.9 Cardiomyopathy, unspecified; K21.9 Gastro-esophageal reflux disease without esophagitis; Z86.711 Personal history of pulmonary embolism; Z85.820 Personal history of malignant melanoma of skin; Z87.891 Personal history of nicotine dependence; K57.90 Diverticulosis of intestine, part unspecified, without perforation or abscess without bleeding; R16.0 Hepatomegaly, not elsewhere classified
CPT/HCPCS: 36415; 74177; 80053; 81003; 81015; 82272; 83690; 85025; 85610; 85730; 86141; 87086; 96360; 96374; 96375; 96376; 99283; A9270-GY; J2270; J2405; Q9967